=== PATIENT | female | born 1980 | race Caucasian/White ===

== ENCOUNTER 2018-07-12 20:12 | Emergency (ER) | payer BC ==
[2018-07-12 21:30] LABS: Urine Blood TRACE (NEG); Urine Glucose NEGATIVE (NEG); Urine Protein NEGATIVE (NEG); Urine Specific Gravity >1.030 (1.005-1.030); Urine pH 5.5 (5.0-7.0)
[2018-07-12 21:49] LABS: Absolute Lymphocytes (CBC) 1.6 K/uL (0.7-4.9); Absolute Monocytes 0.6 K/uL (0.1-1.3); Absolute Neutrophil 6.7 K/uL (1.8-8.0); Basophils % 0.4 % (0-1.3); Eosinophils % 0.7 % (0-4.4); Hematocrit 36.5 % (36.0-45.0); Lymphocytes % 18.3 % (15.3-44.8); MCH 29.8 pg (27.0-35.0); MCV 88.9 fL (80-100); MPV 7.6 fL (7.6-11.3); Monocytes % 6.3 % (3.3-12.3)
--- NOTE | 2018-07-12 21:56 | RAD REPORT ---
EXAM DESCRIPTION: CT - Stone Protocol - 07/12/2018 9:38 pm CLINICAL HISTORY: Right-sided back and flank pain COMPARISON: None. TECHNIQUE: Axial 5 mm thick images were obtained without oral or IV contrast. The [id number] span s the entirety of the system including uppermost abdomen and lung bases. All CT scans are performed using dose optimization technique as appropriate and may include automated exposure control or mA/KV adjustment according to patient size. FINDINGS: There is mild dilatation of the pelvis and calices on the right without hydroureter. In th e right pelvic floor at the UVJ level there is a 5 millimeter stone. Patient has no other phleboliths along the pelvic floor. A partial or intermittently obstructing UVJ calculus is suspected. Patient h as punctate calcifications upper pole calyx on the right. No left-sided hydronephrosis. Punctate caliceal calcifications noted on the left. No calcification wi thin the lumen of the bladder. Bladder is contracted. No suspicious renal masses. Isodense masses and pyelonephritis are not excluded on a stone protocol CT scan. Uterus and ovaries show no suspicious f indings. Imaged portions of the liver, spleen and pancreas show no suspicious findings on non-contrast imaging . Patient has at least 2 large gallstones in a normal-sized gallbladder. No wall thickening or edema. Active gallbladder process is not suspected. No biliary tree dilatation. No adrenal abnormality. No suspicious bowel findings. No hernia, mass or bulky lymphadenopathy noted. No free air, free fluid or inflammatory stranding. No significant bony abnormality. IMPRESSION: 5 millimeter calcification right floor the pelvis is believed to be a right UVJ calculus . Fullness of the right renal pelvis is present without hydroureter. Patient may have partial or interm ittent obstruction. Cholelithiasis without evidence for active gallbladder process. No biliary tree dilatation. Isodense masses and pyelonephritis are not excluded on stone protocol technique.
[2018-07-12 22:04] LABS: Albumin 3.8 g/dL (3.4-5.0); Bilirubin Direct 0.1 mg/dL (0-0.2); Bilirubin Total 0.4 mg/dL (0.2-1.0); Potassium 3.5 mmol/L (3.5-5.1); Protein, Total 6.9 g/dL (6.4-8.2)
[2018-07-12] MEDS ORDERED: ONDANSETRON 4 MG/2 ML VIAL ONE (22:23)
[2018-07-12] MEDS ORDERED: KETOROLAC 30 MG/ML INJ ONE (22:23)
[2018-07-12] MEDS ORDERED: levoFLOXacin 500 MG TAB ONE (22:23)
[2018-07-12] MEDS ORDERED: CEFTRIAXONE/SWI 1gm 1 GM/10 ML SYR ONE (22:24)
[2018-07-12] MEDS ORDERED: NA CHLORIDE 0.9% 1,000 ML ONE (22:24)
--- NOTE | 2018-07-12 22:51 | ER ---
Nurse's Notes [facility] Name: Joanne Mclain Age: 38 yrs Sex: Female : 1980 Arrival Date: 07/12/2018 Time: 20:14 Bed 25 Private MD: Diagnosis: Urinary tract infection, site not specified;Hydronephrosis with renal and ureteral calculous obstruction-5 mm uvj Presentation: 07/12 20:27 Presenting complaint: Patient states: that approx 1 hr ago she started to have right fc sided back kidney pain. Having urge to void but no urine will come out. Pt also positive for nausea and vomiting. Transition of care: patient was not received from another setting of care. Onset of symptoms was July 12, 2018 at 19:30. Risk Assessment: Do you want to hurt yourself or someone else? Patient reports no desire to harm self or others. Initial Sepsis Screen: Does the patient meet any 2 criteria? No. Patient's initial sepsis screen is negative. Does the patient have a suspected source of infection? No. Patient's initial sepsis screen is negative. Care prior to arrival: Medication(s) given: Motrin, 400 mg, at 2000. 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 - Social history:: Smoking status: Patient/guardian denies using tobacco. - Ebola Screening: : Patient negative for fever greater than or equal to 101.5 degrees Fahrenheit, and additional compatible Ebola Virus Disease symptoms Patient denies exposure to infectious person Patient denies travel to an Ebola-affected area in the 21 days before illness onset. - Family history:: not pertinent. Screenin:32 Abuse screen: Denies threats or abuse. Nutritional screening: No deficits noted. fc Tuberculosis screening: No symptoms or risk factors identified. Fall Risk None identified. Assessment: 21:00 General: Appears uncomfortable, well groomed, well developed, well nourished, Behavior tl3 is calm, cooperative, appropriate for age. Pain: Complains of pain in right mid back. Neuro: Level of Consciousness is awake, alert, obeys commands. Cardiovascular: Patient's skin is warm and dry. Respiratory: No deficits noted. Airway is patent Respiratory effort is even, unlabored. GI: No deficits noted. No signs and/or symptoms were reported involving the gastrointestinal system. : Urine is clear, Reports burning with urination, pain. : Reports pain started today, difficult to urinate. EENT: No deficits noted. No signs and/or symptoms were reported regarding the EENT system. Derm: No deficits noted. No signs and/or symptoms reported regarding the dermatologic system. Musculoskeletal: No deficits noted. 22:50 Reassessment: Patient appears in no apparent distress at this time. No changes from tl3 previously documented assessment. Patient and/or family updated on plan of care and expected duration. Pain level reassessed. Patient is alert, oriented x 3, equal unlabored respirations, skin warm/dry/pink. pt has no needs at this time. 23:31 Reassessment: Patient appears in no apparent distress at this time. No changes from tl3 previously documented assessment. Patient and/or family updated on plan of care and expected duration. Pain level reassessed. Patient is alert, oriented x 3, equal unlabored respirations, skin warm/dry/pink. Vital Signs: 20:30 BP 120 / 83; Pulse 74; Resp 18; Temp 97.9(TE); Pulse Ox 100% on R/A; Weight 73.48 kg fc (R); Height 5 ft. 4 in. (162.56 cm) (R); Pain 4/10; 22:50 BP 102 / 55; Pulse 85; Resp 18; Pulse Ox 100% on R/A; tl3 23:31 BP 112 / 80; Pulse 80; Resp 18; Pulse Ox 99% on R/A; tl3 20:30 Body Mass Index 27.81 (73.48 kg, 162.56 cm) ED Course: 20:14 Patient arrived in ED. ag3 20:29 Triage completed. fc 20:31 Arm band placed on Patient placed in an exam room, on a stretcher. fc 20:32 Patient has correct armband on for positive identification. Placed in gown. Bed in low fc position. Call light in reach. 20:32 No provider procedures requiring assistance completed. fc 20:41 Anderson Sommer MD is Attending Physician. cameron 20:52 Radiology exam delayed due to test not completed at this time. nj 21:00 Inserted saline lock: 20 gauge in right antecubital area, using aseptic technique. tl3 Blood collected. 21:07 Brenda Banerjee, RN is Primary Nurse. tl3 21:32 Urine --Ancillary (enter results) Sent. tl3 21:32 Urine Dipstick--Ancillary (enter results) Sent. tl3 21:38 CT Stone Protocol In Process Unspecified. EDMS 23:31 IV discontinued, intact, bleeding controlled, No redness/swelling at site. Pressure tl3 dressing applied. Administered Medications: 22:30 Drug: TORadol 30 mg Route: IVP; Infused Over: 2 mins; Site: right antecubital; tl3 22:52 Follow up: Response: No adverse reaction tl3 22:30 Drug: Zofran 4 mg Route: IVP; Infused Over: 2 mins; Site: right antecubital; tl3 22:52 Follow up: Response: No adverse reaction tl3 22:30 Drug: Rocephin - (cefTRIAXone) 1 grams Route: IVPB; Infused Over: 30 mins; Site: right tl3 antecubital; Delivery: Primary tubing; 22:51 Follow up: IV Status: Completed infusion; IV Intake: 20ml tl3 22:30 Drug: NS 0.9% 1000 ml Route: IV; Rate: 1 bolus; Site: right antecubital; Delivery: tl3 Primary tubing; 23:36 Follow up: IV Status: Completed infusion; IV Intake: 1000ml tl3 22:30 Drug: LevOfloxacin 500 mg Route: PO; tl3 22:51 Follow up: Response: No adverse reaction tl3 23:03 Drug: Flomax 0.4 mg Route: PO; tl3 23:07 Follow up: Response: No adverse reaction tl3 Intake: 22:51 IV: 20ml; Total: 20ml. tl3 23:36 IV: 1000ml; Total: 1020ml. tl3 Outcome: 22:51 Discharge ordered by . cameron 23:31 Discharged to home ambulatory. tl3 23:31 Condition: stable 23:31 Discharge instructions given to patient, family, Instructed on discharge instructions, follow up and referral plans. medication usage, Demonstrated understanding of instructions, follow-up care, medications, Prescriptions given X 3. 23:38 Patient left the ED. tl3 Signatures: Dispatcher [employer] EDnAderson Valenzuela MD MD cha Chretien, Felicia, RN RN fc Jordan, Nathan nj Lowrey, Tammy, RN RN tl3 Wendy Del Real 3
--- NOTE | 2018-07-12 22:51 | EDPHYS ---
Physician Documentation [facility] Name: Joanne Mclain Age: 38 yrs Sex: Female : 1980 Arrival Date: 07/12/2018 Time: 20:14 Bed 25 Private MD: ED Physician Anderson Sommer HPI: 07/12 20:50 This 38 yrs old Female presents to ER via Ambulatory with complaints of Back cameron Pain. 20:50 The patient presents with pain that is acute, with no known mechanism of injury. The cameron symptoms are located in the right mid back. Onset: The symptoms/episode began/occurred 1 day(s) ago. The pain radiates to the right mid back. Associated signs and symptoms: The patient has no apparent associated signs or symptoms. Modifying factors: The patient symptoms are alleviated by nothing, the patient symptoms are aggravated by. Severity of symptoms: At their worst the symptoms were mild, moderate, in the emergency department the symptoms are unchanged. The patient has not experienced similar symptoms in the past. 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 - Social history:: Smoking status: Patient/guardian denies using tobacco. - Ebola Screening: : Patient negative for fever greater than or equal to 101.5 degrees Fahrenheit, and additional compatible Ebola Virus Disease symptoms Patient denies exposure to infectious person Patient denies travel to an Ebola-affected area in the 21 days before illness onset. - Family history:: not pertinent. ROS: 20:50 Constitutional: Negative for fever, chills, and weight loss, Eyes: Negative for injury, cameron pain, redness, and discharge, ENT: Negative for injury, pain, and discharge, Neck: Negative for injury, pain, and swelling, Cardiovascular: Negative for chest pain, palpitations, and edema, Respiratory: Negative for shortness of breath, cough, wheezing, and pleuritic chest pain, Abdomen/GI: Negative for abdominal pain, nausea, vomiting, diarrhea, and constipation, : Negative for injury, bleeding, discharge, and swelling, MS/Extremity: Negative for injury and deformity, Skin: Negative for injury, rash, and discoloration, Neuro: Negative for headache, weakness, numbness, tingling, and seizure, Psych: Negative for depression, anxiety, suicide ideation, homicidal ideation, and hallucinations, Allergy/Immunology: Negative for hives, rash, and allergies, Endocrine: Negative for neck swelling, polydipsia, polyuria, polyphagia, and marked weight changes, Hematologic/Lymphatic: Negative for swollen nodes, abnormal bleeding, and unusual bruising. 20:50 Back: Positive for flank pain, on the right. Exam: 20:50 Constitutional: This is a well developed, well nourished patient who is awake, alert, cameron and in no acute distress. Head/Face: Normocephalic, atraumatic. Eyes: Pupils equal round and reactive to light, extra-ocular motions intact. Lids and lashes normal. Conjunctiva and sclera are non-icteric and not injected. Cornea within normal limits. Periorbital areas with no swelling, redness, or edema. ENT: Nares patent. No nasal discharge, no septal abnormalities noted. Tympanic membranes are normal and external auditory canals are clear. Oropharynx with no redness, swelling, or masses, exudates, or evidence of obstruction, uvula midline. Mucous membranes moist. Neck: Trachea midline, no thyromegaly or masses palpated, and no cervical lymphadenopathy. Supple, full range of motion without nuchal rigidity, or vertebral point tenderness. No Meningismus. Chest/axilla: Normal chest wall appearance and motion. Nontender with no deformity. No lesions are appreciated. Cardiovascular: Regular rate and rhythm with a normal S1 and S2. No gallops, murmurs, or rubs. Normal PMI, no JVD. No pulse deficits. Respiratory: Lungs have equal breath sounds bilaterally, clear to auscultation and percussion. No rales, rhonchi or wheezes noted. No increased work of breathing, no retractions or nasal flaring. Abdomen/GI: Soft, non-tender, with normal bowel sounds. No distension or tympany. No guarding or rebound. No evidence of tenderness throughout. Female : Normal external genitalia. Skin: Warm, dry with normal turgor. Normal color with no rashes, no lesions, and no evidence of cellulitis. MS/ Extremity: Pulses equal, no cyanosis. Neurovascular intact. Full, normal range of motion. Neuro: Awake and alert, GCS 15, oriented to person, place, time, and situation. Cranial nerves II-XII grossly intact. Motor strength 5/5 in all extremities. Sensory grossly intact. Cerebellar exam normal. Normal gait. Psych: Awake, alert, with orientation to person, place and time. Behavior, mood, and affect are within normal limits. 20:50 Back: pain, that is mild, that is moderate, of the right mid back. Vital Signs: 20:30 BP 120 / 83; Pulse 74; Resp 18; Temp 97.9(TE); Pulse Ox 100% on R/A; Weight 73.48 kg fc (R); Height 5 ft. 4 in. (162.56 cm) (R); Pain 4/10; 22:50 BP 102 / 55; Pulse 85; Resp 18; Pulse Ox 100% on R/A; tl3 23:31 BP 112 / 80; Pulse 80; Resp 18; Pulse Ox 99% on R/A; tl3 20:30 Body Mass Index 27.81 (73.48 kg, 162.56 cm) MDM: 20:41 Patient medically screened. [facility] 22:53 Data reviewed: vital signs, nurses notes, lab test result(s), radiologic studies, CT cameron scan. 07/12 20:50 Order name: Basic Metabolic Panel; Complete Time: 22:49 [facility] 07/12 20:50 Order name: CBC with Diff; Complete Time: 22:49 [facility] 07/12 20:50 Order name: Creatinine for Radiology; Complete Time: 22:49 [facility] 07/12 20:50 Order name: Hepatic Function; Complete Time: 22:49 [facility] 07/12 20:50 Order name: Lipase; Complete Time: 22:49 [facility] 07/12 20:50 Order name: Urine Culture [facility] 07/12 20:50 Order name: CT Stone Protocol; Complete Time: 22:49 [facility] 07/12 21:17 Order name: Urine Dipstick--Ancillary (enter results) ms 07/12 21:17 Order name: Urine --Ancillary (enter results) ms 07/12 21:17 Order name: Urine Dipstick-Ancillary; Complete Time: 21:55 EDMS 07/12 21: Order name: Urine --Ancillary; Complete Time: 21:55 EDMS 07/12 20:50 Order name: IV Saline Lock; Complete Time: 21:33 [facility] 07/12 20:50 Order name: Labs collected and sent; Complete Time: 21:33 [facility] 07/12 20:50 Order name: Urine Dipstick-Ancillary (obtain specimen); Complete Time: 21:15 [facility] 07/12 20:50 Order name: Urine Test (obtain specimen); Complete Time: 21:15 [facility] Administered Medications: 22:30 Drug: TORadol 30 mg Route: IVP; Infused Over: 2 mins; Site: right antecubital; tl3 22:52 Follow up: Response: No adverse reaction tl3 22:30 Drug: Zofran 4 mg Route: IVP; Infused Over: 2 mins; Site: right antecubital; tl3 22:52 Follow up: Response: No adverse reaction tl3 22:30 Drug: Rocephin - (cefTRIAXone) 1 grams Route: IVPB; Infused Over: 30 mins; Site: right tl3 antecubital; Delivery: Primary tubing; 22:51 Follow up: IV Status: Completed infusion; IV Intake: 20ml tl3 22:30 Drug: NS 0.9% 1000 ml Route: IV; Rate: 1 bolus; Site: right antecubital; Delivery: tl3 Primary tubing; 23:36 Follow up: IV Status: Completed infusion; IV Intake: 1000ml tl3 22:30 Drug: LevOfloxacin 500 mg Route: PO; tl3 22:51 Follow up: Response: No adverse reaction tl3 23:03 Drug: Flomax 0.4 mg Route: PO; tl3 23:07 Follow up: Response: No adverse reaction tl3 Disposition: 07/12/18 22:51 Discharged to Home. Impression: Urinary tract infection, site not specified, Hydronephrosis with renal and ureteral calculous obstruction - 5 mm uvj. - Condition is Stable. - Discharge Instructions: Dysuria, Urinary Tract Infection, Adult, Urinary Tract Infection, Adult, [id number], Hydronephrosis, Dietary Guidelines to Help Prevent Kidney Stones. - Prescriptions for Tylenol- Codeine #3 300-30 mg Oral Tablet - take 2 tablets by ORAL route every 6 hours As needed; 24 tablet. Flomax 0.4 mg Oral Capsule, Sust. Release 24 hr - take 1 capsule by ORAL route once daily 1/2 hour following the same meal each day; 14 capsule. Levaquin 500 mg Oral Tablet - take 1 tablet by ORAL route once daily for 7 days; 7 tablet. - Medication Reconciliation Form, Thank You Letter, Antibiotic Education, Prescription Opioid Use form. - Follow up: Private Physician; When: 2 - 3 days; Reason: Recheck today's complaints, Continuance of care, Re-evaluation by your physician. - Problem is new. - Symptoms have improved. Signatures: Dispatcher [employer] EDVA Anderson Sommer MD MD cha Chretien, Felicia RN RN Brenda Zhou RN RN tl3 Corrections: (The following items were deleted from the chart) 23:38 22:51 07/12/2018 22:51 Discharged to Home. Impression: Urinary tract infection, site tl3 not specified; Hydronephrosis with renal and ureteral calculous obstruction - 5 mm uvj. Condition is Stable. Discharge Instructions: Dysuria, Urinary Tract Infection, Adult, Urinary Tract Infection, Adult, [id number]. Prescriptions for Tylenol-Codeine #3 300-30 mg Oral Tablet - take 2 tablets by ORAL route every 6 hours As needed; 24 tablet, Flomax 0.4 mg Oral Capsule, Sust. Release 24 hr - take 1 capsule by ORAL route once daily 1/2 hour following the same meal each day; 14 capsule, Levaquin 500 mg Oral Tablet - take 1 tablet by ORAL route once daily for 7 days; 7 tablet. and Forms are Medication Reconciliation Form, Thank You Letter, Antibiotic Education, Prescription Opioid Use. Follow up: Private Physician; When: 2 - 3 days; Reason: Recheck today's complaints, Continuance of care, Re-evaluation by your physician. Problem is new. Symptoms have improved. cameron
[2018-07-12] MEDS ORDERED: TAMSULOSIN 0.4 MG SR CAP ONE (23:11)
== END 2018-07-12 23:38 | disposition home or self-care (01) ==
LOC: ER 20:12
DX: N13.2 Hydronephrosis with renal and ureteral calculous obstruction (principal); N39.0 Urinary tract infection, site not specified
CPT/HCPCS: 36415; 74176; 76377; 80048; 80076; 81003; 81025; 83690; 85025; 87086; 87088; J0696; J2405; J7030

== ENCOUNTER 2024-11-14 18:19 | Emergency (ER) | payer OTHER ==
--- OUTSIDE RECORDS SUMMARY | 2024-11-14 18:22 | XMS REPORT | Continuity of Care Document ---
Author Name Unknown Address [address] [facility] [address]. [address] thconnect Address [address] [facility]. 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 Name Role Phone [email or web address] Attending Clinician Unavaila ble [email or web address] Admitting Clinician Unavaila ble Payers Payer Name Policy Type Policy Number Effective Date Expirati on Date Source [place] [id number] 2018 00:00:00 Problems Condition Name Condition Details Condition Category Status Onset Date Resolution Date Last Treatment Date Treating Clinician Comments Source Female stress incontinen ce Female Stress Incontinen ce Problem Active 2023-09 00:00: 00 [facility] Obesity Obesity Problem Active 2023-0918 00:00: 00 [facility] Polymenorr hea Polymenorr hea Problem Active 2021-09 0-14 00:00: 00 [facility] Excessive menstruati on with irregular cycle Excessive Menstruati on with Irregular Cycle Problem Active 2021-09 0-14 00:00: 00 [facility] Screening mammograph y Screening Mammograph y Problem Active 2020-09 2-15 00:00: 00 [facility] Chronic uterine inflammato ry disease Chronic Uterine Inflammato ry Disease Problem Active 6-14 00:00: 00 [facility] Body mass index 30+ - obesity Body Mass Index 30+ - Obesity Problem Active 4- 00:00: 00 [facility] Simple obesity Simple Obesity Problem Active 4 00:00: 00 [facility] Hyperlipid emia Hyperlipid emia Problem Active 2019-09 2-16 00:00: 00 [facility] Irregular periods Irregular Periods Problem Active 2019-09 00:00: 00 [facility] Abnormal weight gain Abnormal Weight Gain Problem Active 2019-09 00:00: 00 [facility] Gynecologi stephani examinatio n abnormal Gynecologi stephani Examinatio n Abnormal Problem Active 2019-09 00:00: 00 [facility] Polycystic ovary syndrome Polycystic Ovary Syndrome Problem Active 2019-09 00:00: 00 [facility] Social History Smoking Status Start Date Stop Date Source Never Smoker [facility] Medications Ordered Medication Name Filled Medication Name Start Date Stop Date Current Medication? Ordering Clinician Indication Dosage Frequency Signature (SIG) Comments Components Source amoxicillin 875 mg-potassiu m clavulanate 125 mg tablet TAKE 1 TABLET BY MOUTH IN THE MORNING AND IN THE EVENING FOR 10 DAYS amoxicillin 875 mg-potassiu m clavulanate 125 mg tablet TAKE 1 TABLET BY MOUTH IN THE MORNING AND IN THE EVENING FOR 10 DAYS No amoxicilli n 875 mg-potassi um clavulanat e 125 mg tablet TAKE 1 TABLET BY MOUTH IN THE MORNING AND IN THE EVENING FOR 10 DAYS [facility] Vital Signs Vital Name Observation Time Observation Value Comments S ource BMI (Body Mass Index) 2024-08-13 00:00:00 30.9 kg/m2 [facility] Height 2024-08-13 00:00:00 64 [in_i] [facility] BP Diastolic 2024-08-13 00:00:00 74 mm[Hg] [facility] BP Systolic 2024-08-13 00:00:00 124 mm[Hg] [facility] Body Weight 2024-08-13 00:00:00 180.2 [lb_av] [facility] Procedures Procedure Date / Time Performed Performing Clinicia n Source MAMMO, screening, digital, bilateral 2024-08-13 00:00:00 [facility] Hysteroscopy with Endometrial Ablation 2022-10-01 00:00:00 [facility] Tubal Ligation 2011-09-26 00:00:00 [facility] Laparoscopy 2005-09-26 00:00:00 [facility] edical Delivery [facility] ical Encounters Start Date/Time End Date/Time Encounter Type Admission Type Attending Clinicians Care Facility Care Department Encounter ID Source 2024-08-13 00:00:00 2024-08-13 00:00:00 Flor Grajeda, REGIONAL VICE PRESIDENT SURGICAL SALES: [address], [address], [place] [address] , Ph. Formerly [facility], [facility] - [email or web address] julieta Carranza* [id number] [facility] 2023-08-12 00:00:00 2023-08-12 00:00:00 Outpatient [email or web address] Camacho [facility] [id number] [facility]
[2024-11-14] MEDS ORDERED: KETOROLAC 30 MG/ML INJ ONE (19:22)
[2024-11-14 19:39] LABS: Absolute Eosinophils 0.1 K/uL (0-0.5); Absolute Lymphocytes (CBC) 1.6 K/uL (0.7-4.9); Absolute Monocytes 0.7 K/uL (0.1-1.3); Absolute Neutrophil 9.2 K/uL (1.8-8.0); Basophils % 0.4 % (0-1.3); Eosinophils % 0.5 % (0-4.4); Hematocrit 39.7 % (36.0-45.0); Hemoglobin 13.4 g/dL (12.0-15.0); Lymphocytes % 13.8 % (15.3-44.8); MCH 29.6 pg (27.0-35.0); MCHC 33.8 g/dL (32.0-36.0); MCV 87.5 fL (80-100); MPV 6.9 fL (7.6-11.3); Monocytes % 6.1 % (3.3-12.3); Neutrophils % 79.2 % (41.7-73.7); Platelets 306 thou/uL (152-406); RBC Red Blood Cell Count 4.54 M/uL (3.86-4.86); Red Cell Distribution Width 12.7 % (12.1-15.2)
[2024-11-14] MEDS ORDERED: NA CHLORIDE 0.9% 500 ML ONE (19:51)
[2024-11-14 19:56] LABS: Albumin 3.5 g/dL (3.4-5.0); Albumin/Globulin Ratio 0.9 (1.1-1.8); Bilirubin Total 0.5 mg/dL (0.2-1.0); Globulin 3.8 g/dL (2.3-3.5); Protein, Total 7.3 g/dL (6.4-8.2)
--- NOTE | 2024-11-14 19:56 | RAD REPORT ---
EXAMINATION: CT ABDOMEN AND PELVIS WITHOUT CONTRAST CLINICAL INDICATION: FLANK PAIN TECHNIQUE: CT abdomen and pelvis was performed, without IV contrast, as per department protocol. Axia l, sagittal and coronal reconstructions were obtained. One or more of the following dose reduction techniques were used: Automated exposure control, adjustment of the mA and kV according to the patien t size, and iterative reconstruction. Unless otherwise specified, incidental findings do not require dedicated imaging follow-up. COMPARISON: No prior exam. FINDINGS: The lack of intravenous contrast limits the sensitivity of this exam for evaluation of solid visceral organs, vascular structures, and retroperitoneum. LOWER CHEST: The visualized lung bases are clear. LIVER:Normal in size and contour. No focal lesion. Cholelithiasis. SPLEEN: Normal size. No focal lesion. PANCREAS: No mass, ductal dilation, or shannon-pancreatic fluid. ADRENALS: Normal; no mass. KIDNEYS AND URETERS: 5 mm stone is present distal right ureter resulting in moderate right hydronephr osis and hydroureter. Additional punctate calculi in both kidneys. URINARY BLADDER: Normal contour. GASTROINTESTINAL TRACT: No evidence of bowel obstruction, significant free fluid, free air or abscess . APPENDIX: Normal appendix. LYMPH NODES: No lymphadenopathy. MUSCULOSKELETAL: No acute or suspicious osseous abnormality. ADDITIONAL FINDINGS: None. IMPRESSION: 5 mm stone distal right ureter resulting in [id number] right-sided hydronephrosis. Punctate stephani culi in the calyces of both kidneys.
[2024-11-14 20:42] LABS: Specific Gravity 1.023 (1.005-1.030)
[2024-11-14 20:46] LABS: Specific Gravity 1.023 (1.005-1.030); Sqamous Epithelial <5 /HPF (None Seen); Urine Bacteria <20 /HPF (<20); Urine Bilirubin NEGATIVE (Negative); Urine Blood Trace (Negative); Urine Clarity Extremely Turbid (Clear); Urine Color Yellow (Yellow); Urine Crystals Unidentified Few /HPF (None Seen); Urine Culture Reflex Order REFLEXED; Urine Glucose NEGATIVE (Negative); Urine Ketones NEGATIVE (Negative); Urine Microscopic Reflex YN ORDER UMIC; Urine Mucus Slight /HPF (None Seen); Urine Nitrite NEGATIVE (Negative); Urine Protein TRACE (Negative); Urine Urobilinogen 1+ (Normal); Urine WBC 20-50 /HPF (<5); Urine WBC Clump Rare /HPF (None Seen); Urine Yeast (Budding) Occasional /HPF (None Seen); Urine pH 6.5 (5.0-7.0)
--- NOTE | 2024-11-14 21:01 | ER ---
Nurse's Notes [facility] Name: Joanne Mclain Age: 44 yrs Sex: Female : 1980 Arrival Date: 11/14/2024 Time: 18:19 Bed 14 Private MD: Diagnosis: Kidney stone, ureterolithiasis, right flank pain;UTI/ Urinary tract infection, site not specified Presentation: 11/14 18:52 Chief complaint: Patient states: L sided back pain, now both side for 2 hours. + ll1 nausea. Coronavirus screen: Client denies travel out of the [place] in the last 14 days. At this time, the client does not indicate any symptoms associated with coronavirus-19. Ebola Screen: Patient denies travel to an Ebola-affected area in the 21 days before illness onset. Initial Sepsis Screen: Does the patient meet any 2 criteria? No. Patient's initial sepsis screen is negative. Does the patient have a suspected source of infection? No. Patient's initial sepsis screen is negative. Risk Assessment: Do you want to hurt yourself or someone else? Patient reports no desire to harm self or others. Onset of symptoms was November 14, 2024. 18:52 Method Of Arrival: Ambulatory ll1 18:52 Acuity: BESSIE 3 ll1 Triage Assessment: 18:52 General: Appears distressed, uncomfortable, Behavior is calm, cooperative, appropriate ll1 for age. Pain: Complains of pain in back. GI: Reports nausea, vomiting. Musculoskeletal: Reports pain in back. 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 - Infectious Disease History:: Denies. - Social history:: Smoking status: Patient denies any tobacco usage or history of. Screenin:00 [facility] ED Fall Risk Assessment (Adult) History of falling in the last 3 months, me1 including since admission Yes- single mechanical fall (1 pt) Confusion or Disorientation No (0 pts) Intoxicated or Sedated No (0 pts) Impaired Gait No (0 pts) Mobility Assist Device Used No (0 pt) Altered Elimination No (0 pt) Score/Fall Risk Level 0 - 2 = Low Risk Maintained a safe environment, Provided non-skid footwear, Hourly rounding (assess needs \T\ fall precautionary measures) done. Abuse screen: Denies threats or abuse. Nutritional screening: No deficits noted. Tuberculosis screening: No symptoms or risk factors identified. Assessment: 19:00 General: Appears uncomfortable, well groomed, well developed, well nourished, Behavior me1 is calm, cooperative, appropriate for age, Reports L sided back pain, now both side for 2 hours. + nausea. Pain: Complains of pain in back Pain does not radiate. Pain currently is 8 out of 10 on a pain scale. Quality of pain is described as sharp, Pain began 2 hours ago. Is continuous. Neuro: Level of Consciousness is awake, alert, obeys commands, Oriented to person, place, time, situation, Appropriate for age. Cardiovascular: Patient's skin is warm and dry. Respiratory: Airway is patent Respiratory effort is even, unlabored, Respiratory pattern is regular, symmetrical. GI: Reports nausea. : Reports pain in right in left flank(s), in lower back. EENT: No signs and/or symptoms were reported regarding the EENT system. Derm: Skin is intact, is healthy with good turgor, Skin is pink, warm \T\ dry. Musculoskeletal: No signs and/or symptoms reported regarding the musculoskeletal system. Injury Description: slip and fall yesterday. Vital Signs: 18:52 BP 135 / 93; Pulse 76; Resp 17; Temp 97.1; Pulse Ox 100% ; Weight 72.57 kg; Height 5 ll1 ft. 4 in. ; Pain 9/10; 19:15 BP 116 / 69; Pulse 73; Resp 16; Pulse Ox 100% ; me1 20:15 BP 110 / 58; Pulse 85; Resp 16; Temp 98.4; Pulse Ox 100% ; me1 18:52 Body Mass Index 27.46 (72.57 kg, 162.56 cm) ll1 18:52 Pain Scale: Adult ll1 ED Course: 18:30 Patient arrived in ED. im 18:33 Jane Carr MD is Attending Physician. sp3 18:53 Triage completed. ll1 18:53 Arm band placed on Patient placed in an exam room, on a stretcher. ll1 19:00 Patient has correct armband on for positive identification. Bed in low position. Call me1 light in reach. Side rails up X 1. Provided Education on: POC. Verbalized understanding.. Client placed on continuous cardiac and pulse oximetry monitoring. NIBP monitoring applied. Pulse ox on. NIBP on. 19:00 No provider procedures requiring assistance completed. me1 19:26 Patience Fregoso RN is Primary Nurse. me1 19:33 CBC with Diff Sent. me1 19:33 CMP Sent. me1 19:33 Lipase Sent. me1 19:39 Inserted saline lock: 22 gauge in left antecubital area, using aseptic technique. Blood oe collected. Flushed with 10 mL NS. 19:40 CBC with Diff Sent. oe 19:40 CMP Sent. oe 19:40 Lipase Sent. oe 19:47 CT Abd/Pelvis - Without Contrast In Process Unspecified. EDMS 20:59 Adrienne Huynh PA-C is PHCP. sb4 21:00 Yvon Garner MD is Referral Physician. sb4 21:26 IV discontinued, intact, bleeding controlled, No redness/swelling at site. Pressure me1 dressing applied. Administered Medications: 19:33 Drug: Ketorolac IVP 30 mg IVP once Route: IVP; Site: left antecubital; me1 21:07 Follow up: Response: No adverse reaction; Pain is decreased me1 21:12 Drug: Rocephin IV 1 grams IV at calculated rate once; Given slow IV push per pharmacy me1 instructions Route: IV; Rate: calculated rate; Site: left antecubital; 21:12 Follow up: Response: No adverse reaction; IV Status: Completed infusion me1 21:16 Drug: NS 0.9% IV 500 ml 500 ml IV at 1 bolus once; to be given as a bolus over 30 me1 minutes Volume: 500 ml; Route: IV; Rate: 1 bolus; Site: left antecubital; 21:16 Follow up: Response: No adverse reaction; IV Status: Completed infusion; IV Intake: me1 500ml 21:25 Drug: Flomax PO 0.4 mg PO once Route: PO; me1 21:25 Follow up: Response: No adverse reaction me1 Medication: 19:00 VIS not applicable for this client. me1 Intake: 21:16 IV: 500ml; Total: 500ml. me1 Outcome: 21:00 Discharge ordered by . sb4 21:26 Discharged to home ambulatory, with family, me1 21:26 Condition: stable 21:26 Discharge instructions given to patient, family, Instructed on discharge instructions, follow up and referral plans. medication usage, Demonstrated understanding of instructions, follow-up care, medications, Prescriptions given X 3, 21:27 Patient left the ED. me1 Signatures: Dispatcher [employer] EDMS Raji López Lynsay, RN RN ll1 Jane Carr MD MD sp3 Adrienne Huynh, PA-C PA-C sb4 Kennedi Andrews Michelle, RN RN me1 Corrections: (The following items were deleted from the chart) 20:30 18:52 Chief complaint: Patient states: L sided back pain, now both side for 2 hours. + me1 nausea. ll1
--- NOTE | 2024-11-14 21:01 | EDPHYS ---
Physician Documentation [facility] Name: Joanne Mcalin Age: 44 yrs Sex: Female : 1980 Arrival Date: 11/14/2024 Time: 18:19 Bed 14 Private MD: ED Physician Jane Carr HPI: 11/14 20:14 This 44 yrs old Female presents to ER via Ambulatory with complaints of Back Pain. sp3 20:14 44-year-old female with a history of kidney stones now presents to the ED with right sp3 flank pain for 24 hours. 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 - Infectious Disease History:: Denies. - Social history:: Smoking status: Patient denies any tobacco usage or history of. ROS: 20:15 Constitutional: Negative for fever, chills, and weight loss, Eyes: Negative for injury, sp3 pain, redness, and discharge, Neck: Negative for injury, pain, and swelling, Cardiovascular: Negative for chest pain, palpitations, and edema, Respiratory: Negative for shortness of breath, cough, wheezing, and pleuritic chest pain, Abdomen/GI: Negative for abdominal pain, nausea, vomiting, diarrhea, and constipation, MS/Extremity: Negative for injury and deformity, Skin: Negative for injury, rash, and discoloration, Neuro: Negative for headache, weakness, numbness, tingling, and seizure, Psych: Negative for depression, anxiety, suicide ideation, homicidal ideation, and hallucinations, Allergy/Immunology: Negative for hives, rash, and allergies, Endocrine: Negative for neck swelling, polydipsia, polyuria, polyphagia, and marked weight changes, Hematologic/Lymphatic: Negative for swollen nodes, abnormal bleeding, and unusual bruising, 20:15 All other systems are negative, Exam: 20:15 Constitutional: This is a well developed, well nourished patient who is awake, alert, sp3 and in no acute distress. Head/Face: Normocephalic, atraumatic. Eyes: Pupils equal round and reactive to light, extra-ocular motions intact. Lids and lashes normal. Conjunctiva and sclera are non-icteric and not injected. Cornea within normal limits. Periorbital areas with no swelling, redness, or edema. Neck: Trachea midline, no thyromegaly or masses palpated, and no cervical lymphadenopathy. Supple, full range of motion without nuchal rigidity, or vertebral point tenderness. No Meningismus. Chest/axilla: Normal chest wall appearance and motion. Nontender with no deformity. No lesions are appreciated. Cardiovascular: Regular rate and rhythm with a normal S1 and S2. No gallops, murmurs, or rubs. Normal PMI, no JVD. No pulse deficits. Respiratory: Lungs have equal breath sounds bilaterally, clear to auscultation and percussion. No rales, rhonchi or wheezes noted. No increased work of breathing, no retractions or nasal flaring. Skin: Warm, dry with normal turgor. Normal color with no rashes, no lesions, and no evidence of cellulitis. MS/ Extremity: Pulses equal, no cyanosis. Neurovascular intact. Full, normal range of motion. Neuro: Awake and alert, GCS 15, oriented to person, place, time, and situation. Cranial nerves II-XII grossly intact. Motor strength 5/5 in all extremities. Sensory grossly intact. Cerebellar exam normal. Normal gait. Psych: Awake, alert, with orientation to person, place and time. Behavior, mood, and affect are within normal limits. 20:15 Abdomen/GI: Right CVA tenderness noted., Vital Signs: 18:52 BP 135 / 93; Pulse 76; Resp 17; Temp 97.1; Pulse Ox 100% ; Weight 72.57 kg; Height 5 ll1 ft. 4 in. ; Pain 9/10; 19:15 BP 116 / 69; Pulse 73; Resp 16; Pulse Ox 100% ; me1 20:15 BP 110 / 58; Pulse 85; Resp 16; Temp 98.4; Pulse Ox 100% ; me1 18:52 Body Mass Index 27.46 (72.57 kg, 162.56 cm) ll1 18:52 Pain Scale: Adult ll1 MDM: 18:50 Medical Screening Exam initiated sp3 20:15 Data reviewed: lab test result(s), radiologic studies. ED course: 44-year-old female sp3 with right flank pain differential diagnosis includes UTI/pyelonephritis spectrum, ureterolithiasis/kidney stone spectrum, other pelvic abnormality, GI pathology, among others. Laboratory values without abnormalities and CT scan demonstrates 5 mm kidney stone in the right ureter at the UVJ junction. UA still pending. As long as no infection, we will safely discharge patient home on Flomax, tramadol and follow-up with Dr. Garner.. 11/14 19:05 Order name: CBC with Diff; Complete Time: 20:04 sb4 11/14 19:05 Order name: CMP; Complete Time: 20:04 sb4 11/14 19:05 Order name: Lipase; Complete Time: 20:04 sb4 11/14 19:05 Order name: Test, Urine; Complete Time: 20:59 sb4 11/14 19:05 Order name: Urinalysis w/ reflexes; Complete Time: 20:59 sb4 11/14 20:49 Order name: Urine Culture EDSC 11/14 19:17 Order name: CT Abd/Pelvis - Without Contrast; Complete Time: 20:04 sp3 11/14 19:05 Order name: IV Saline Lock; Complete Time: 19:33 sb4 11/14 19:05 Order name: Labs collected and sent; Complete Time: 19:33 sb4 Administered Medications: 19:33 Drug: Ketorolac IVP 30 mg IVP once Route: IVP; Site: left antecubital; me1 21:07 Follow up: Response: No adverse reaction; Pain is decreased me1 21:12 Drug: Rocephin IV 1 grams IV at calculated rate once; Given slow IV push per pharmacy me1 instructions Route: IV; Rate: calculated rate; Site: left antecubital; 21:12 Follow up: Response: No adverse reaction; IV Status: Completed infusion me1 21:16 Drug: NS 0.9% IV 500 ml 500 ml IV at 1 bolus once; to be given as a bolus over 30 me1 minutes Volume: 500 ml; Route: IV; Rate: 1 bolus; Site: left antecubital; 21:16 Follow up: Response: No adverse reaction; IV Status: Completed infusion; IV Intake: me1 500ml 21:25 Drug: Flomax PO 0.4 mg PO once Route: PO; me1 21:25 Follow up: Response: No adverse reaction me1 Disposition Summary: 11/14/24 21:00 Discharge Ordered Notes: Location: Home sb4 Condition: Stable sb4 Diagnosis - Kidney stone, ureterolithiasis, right flank pain sb4 - UTI/ Urinary tract infection, site not specified sb4 Followup: sp3 - With: Yvon Garner MD - When: Upon discharge from the Emergency Department - Reason: Recheck today's complaints Discharge Instructions: - Discharge Summary Sheet sp3 - Kidney Stones sp3 - Urinary Tract Infection, Adult, [id number] sb4 Forms: - Antibiotic Education sb4 - Patient Portal Instructions sb4 - Leadership Thank You Letter sb4 Prescriptions: - Flomax 0.4 mg Oral capsule - take 1 capsule ORAL route every 24 hours; 5 capsule; Refills: 0, Product sp3 Selection Permitted - Tramadol 50 mg Oral Tablet - take 1 tablet ORAL route every 8 hours as needed; 12 tablet; Refills: 0, sp3 Product Selection Permitted - Macrobid 100 mg Oral Capsule - take 1 capsule ORAL route every 12 hours for 7 days; 14 capsule; Refills: 0, sb4 Product Selection Permitted Signatures: Dispatcher [employer] Farhan Champion, RN RN ll1 Jane Carr MD MD sp3 Adrienne Huynh PA-C PA-C sb4 Patience Fregoso RN RN me1 Corrections: (The following items were deleted from the chart) 19:06 19:06 CBC+H.LAB.BRZ ordered. EDMS EDMS 19:06 19:06 COMPREHENSIVE METABOLIC PANEL+C.LAB.BRZ ordered. EDMS EDMS 19:06 19:06 LIPASE+C.LAB.BRZ ordered. EDMS EDMS 19:06 19:06 Test, Urine+UC.LAB.BRZ ordered. EDMS EDMS 19:06 19:06 Urinalysis+U.LAB.BRZ ordered. EDMS EDMS
[2024-11-14] MEDS ORDERED: CEFTRIAXONE 1000 MG/VIAL ONE (21:03)
[2024-11-14] MEDS ORDERED: TAMSULOSIN 0.4 MG SR CAP ONE (21:20)
== END 2024-11-14 21:27 | disposition home or self-care (01) ==
LOC: ER 18:19
DX: N20.2 Calculus of kidney with calculus of ureter (principal); N39.0 Urinary tract infection, site not specified
CPT/HCPCS: 87088; 85025; 81001; 87086; 36415; 81025; 83690; 80053; 74176; J7040; J0696